=== PATIENT | female | born 1980 | race Caucasian/White ===

== ENCOUNTER 2018-03-14 12:37 | Emergency (ER) | payer MEDICAID, OTHER ==
[~2018-03-14] VITALS: Ht 175.3 cm; Wt 81.8 kg
[~2018-03-14 12:37] MED LIST: HYDR-569 PO; IBUP-1984 PO; NO HOME MEDS; ONDA4TAB6 PO; PHEN-873 PO
[2018-03-14] MEDS ORDERED: ondansetron/PF 4mg/2ml inj IV STA ×2 (12:51→14:58)
[2018-03-14] MEDS ORDERED: normal saline 1000ml 1,000 ML IV STA (12:51)
[2018-03-14 13:32] LABS: BASOPHILS % (AUTO) 0.3 % (0-1); EOSINOPHILS # (AUTO) 0.1 X10'3 (0-0.9); EOSINOPHILS % (AUTO) 0.8 % (0-6); HEMATOCRIT 38.3 % (35.0-45.0); HEMOGLOBIN 13.2 g/dl (12.0-16.0); LYMPHOCYTES # (AUTO) 1.9 X10'3 (1.1-4.8); LYMPHOCYTES % (AUTO) 21.3 % (21-51); MEAN CORPUSCULAR HEMOGLOBIN 30.4 PG (27.0-31.0); MEAN CORPUSCULAR HGB CONC 34.4 % (33.0-36.5); MEAN CORPUSCULAR VOLUME 88.5 FL (78-98); MEAN PLATELET VOLUME 8.9 FL (7.4-10.4); MONOCYTES # (AUTO) 0.6 X10'3 (0-0.9); MONOCYTES % (AUTO) 6.4 % (2-12); NEUTROPHILS # (AUTO) 6.4 X10'3 (1.8-7.7); NEUTROPHILS % (AUTO) 71.2 % (42-75); PLATELET COUNT 252 X10'3 (140-440); RED BLOOD COUNT 4.33 X10'6 (4.20-5.60); RED CELL DISTRIBUTION WIDTH 14.8 % (11.5-14.5)
[2018-03-14 13:40] LABS: INR 0.9 INR; PROTHROMBIN TIME 9.4 SECONDS (9.0-12.0)
[2018-03-14 13:47] LABS: ALANINE AMINOTRANSFERASE 18 U/L (12-78); ALBUMIN 3.5 G/DL (3.4-5.0); ALKALINE PHOSPHATASE 78 IU/L (46-116); AMYLASE 51 U/L (25-115); ANION GAP 10 (8-16); ASPARTATE AMINO TRANSFERASE 8 U/L (10-37); BILIRUBIN,TOTAL 0.3 MG/DL (0.1-1.0); BLOOD UREA NITROGEN 6 MG/DL (7-18); BUN/CREATININE RATIO 6.7 (6.6-38.0); CHLORIDE 105 MMOL/L (99-107); CREATININE 0.89 MG/DL (0.40-0.90); GLUCOSE 97 MG/DL (70-104); LIPASE 58 U/L (73-393); POTASSIUM 3.7 MMOL/L (3.5-5.1); SODIUM 140 MMOL/L (135-145); TOTAL CARBON DIOXIDE 24.7 MMOL/L (24-32); eGFR 72 ML/MIN
[2018-03-14 13:51] LABS: CLARITY,URINE Cloudy (Clear); COLOR,URINE Yellow (Yellow); GLUCOSE, URINE Negative (Neg); KETONES,URINE Negative (Neg); LEUKOCYTE ESTERASE ,URINE Negative (Neg); NITRITES, URINE Negative (Neg); OCCULT BLOOD,URINE Negative (Neg); PH,URINE >=9.0 (4.8-8.0); PROTEIN,URINE Negative (Neg); UROBILINOGEN,URINE 0.2 E.U/dL (0.2-1.0)
[2018-03-14 13:52] LABS: URINE HCG NEGATIVE (NEG)
[2018-03-14 14:00] LABS: UA COLLECTION TYPE CLN CATCH MIDSTREAM
[2018-03-14 14:04] LABS: AMORPHOUS PHOSPHATES 1+; BACTERIA,URINE 4+ /HPF (Neg); MUCUS STRANDS FEW /LPF (Neg); RBC,URINE NONE SEEN /HPF (0-2); SQUAMOUS EPITHELIAL CELL,UR FEW /LPF (FEW); WBC,URINE 0-4 /HPF (0-4)
[2018-03-14] MEDS ORDERED: ketorolac tromethamine 15mg/ml inj. IV STA (14:59)
[2018-03-14] MEDS ORDERED: CIPR-259 PO (15:55)
[2018-03-14 16:04] VITALS: BP 129/75
== END 2018-03-14 16:13 | disposition home or self-care (01) ==
LOC: ER 12:37
DX: I88.9 Nonspecific lymphadenitis, unspecified (principal); Z88.8 Allergy status to other drugs, medicaments and biological substances; Z79.899 Other long term (current) drug therapy
CPT/HCPCS: 36415; 74176; 80053; 81001; 81025; 82150; 83690; 85025; 85610; 87077; 87088; 87186; 96361; 96374; 96375; 96376; 99285; J1885; J2405; J7030

== ENCOUNTER 2018-08-08 17:03 | Emergency (ER) | payer MEDICAID ==
[~2018-08-08] VITALS: Ht 177.8 cm; Wt 79.0 kg
[~2018-08-08 17:03] MED LIST changes: +HYDR-4383 PO; -HYDR-569 PO; +PHEN-786 PO; -PHEN-873 PO
[2018-08-08 17:08] VITALS: BP 148/94
[2018-08-08] MEDS ORDERED: CefTRIAXone 250MG IM Kit w/LIDOcaine IM ONE (17:25)
[2018-08-08] MEDS ORDERED: azithromycin 250mg tablet PO ONE (17:25)
[2018-08-08] MEDS ORDERED: DOXY100C2 PO (17:27)
== END 2018-08-08 17:55 | disposition home or self-care (01) ==
LOC: ER 17:04
DX: Z11.3 Encounter for screening for infections with a predominantly sexual mode of transmission (principal); R35.0 Frequency of micturition; Z90.49 Acquired absence of other specified parts of digestive tract; Z98.890 Other specified postprocedural states; Z98.51 Tubal ligation status; Z88.6 Allergy status to analgesic agent
CPT/HCPCS: 96372; 99283; J0696